=== PATIENT | female | born 1990 | race Two or more races ===

== ENCOUNTER 2017-08-26 23:01 | Emergency (ER) | payer OTHER ==
[~2017-08-26] VITALS: Ht 162.6 cm; Wt 55.3 kg
[2017-08-26 23:08] VITALS: BP 113/65
--- NOTE | 2017-08-27 01:38 | NUR ---
Patient discharged to home in stable condition. Written and verbal after care instructions given. Patient verbalizes understanding of instruction.
== END 2017-08-27 01:41 | disposition home or self-care (01) ==
LOC: ER 23:08
DX: R20.2 Paresthesia of skin (principal)
CPT/HCPCS: 99281; A4606; Z7610; Z7502